=== PATIENT | male | born 1940 | race Caucasian/White ===

== ENCOUNTER → 2016-08-13 | Outpatient (REF) | payer MEDICARE ==
[~2016-08-13] MED LIST: MULT1TAB10 PO; PRESCAP PO; SIMV20TA2 PO; VITATAB11 PO
== END ==
LOC: M LAB REF 12:24
PROVIDERS: ATTEND Internal Medicine
DX: M10.9 Gout, unspecified (principal)

== ENCOUNTER → 2018-08-14 | Outpatient (REF) | payer MEDICARE | LOC: M LAB REF 12:38 | PROVIDERS: ATTEND Internal Medicine | DX: E79.0 Hyperuricemia without signs of inflammatory arthritis and tophaceous disease (principal) ==

== ENCOUNTER 2018-10-09 21:06 | Emergency (ER) | payer MEDICARE ==
[~2018-10-09] VITALS: Ht 182.9 cm; Wt 95.5 kg
[2018-10-09] MEDS ORDERED: FAMOTIDINE INJ 20MG/2ML VIAL (S0028) IVP ONE (21:30)
[2018-10-09] MEDS ORDERED: methylPREDNISolone INJ 125 MG/2 ML VIAL (J2930) IV ONE (21:30)
[2018-10-09] MEDS ORDERED: NS 1,000 ML IV ONE (21:30)
[2018-10-09] MEDS ORDERED: diphenhydrAMINE INJ 50MG/ML VIAL (J1200) IV ONE (21:30)
[2018-10-09] MEDS ORDERED: BENA25CA4 PO (21:48)
[2018-10-09] MEDS ORDERED: PRED20TA PO (23:01)
[2018-10-09] MEDS ORDERED: PEPC1TAB5 PO (23:01)
[2018-10-09 23:15] VITALS: BP 141/78
== END 2018-10-09 23:28 | disposition home or self-care (01) ==
LOC: M ED 21:06
DX: T63.441A Toxic effect of venom of bees, accidental (unintentional), initial encounter (principal); Y92.9 Unspecified place or not applicable; Y93.9 Activity, unspecified; I10 Essential (primary) hypertension; Z79.899 Other long term (current) drug therapy; Z91.040 Latex allergy status; Z91.013 Allergy to seafood; Z91.89 Other specified personal risk factors, not elsewhere classified
CPT/HCPCS: 93041; 94760; 96361; 96374; 96375; 99284; J2930

== ENCOUNTER → 2019-02-18 | Outpatient (REF) | payer MEDICARE ==
[~2019-02-18] MED LIST changes: +BENA25CA4 PO; +PEPC1TAB5 PO; +PRED20TA PO; -SIMV20TA2 PO; +SIMV20TA22 PO
== END ==
LOC: M LAB REF 14:21
PROVIDERS: ATTEND Internal Medicine
DX: E79.0 Hyperuricemia without signs of inflammatory arthritis and tophaceous disease (principal)

== ENCOUNTER → 2021-03-02 | Outpatient (REF) | payer MEDICARE | LOC: M LAB REF 13:58 | PROVIDERS: ATTEND Internal Medicine | DX: M10.9 Gout, unspecified (principal) ==

== ENCOUNTER → 2022-03-04 | Outpatient (REF) | payer MEDICARE | LOC: M LAB REF 12:22 | PROVIDERS: ATTEND Internal Medicine | DX: M10.9 Gout, unspecified (principal) ==

== ENCOUNTER → 2022-11-13 | Outpatient (REF) | payer MEDICARE | LOC: M LAB REF 16:15 | PROVIDERS: ATTEND Internal Medicine | DX: M15.9 Polyosteoarthritis, unspecified (principal); E79.0 Hyperuricemia without signs of inflammatory arthritis and tophaceous disease ==